=== PATIENT | female | born 1985 ===

== ENCOUNTER → 2018-05-12 | Outpatient (CLI) | payer SELFPAY ==
--- NOTE | 2018-05-12 16:48 | Diagnostic Imaging Report ---
INDICATION: survey. TECHNIQUE: Multiple real-time grayscale images were obtained over the gravid uterus. COMPARISON: None. FINDINGS: There is a single live fetus in a transverse presentation. The placenta is posterior and appears to be marginal in location. heart rate was recorded at 147 beats minute. Amniotic fluid volume appears normal. Cervical length is 5.8 cm. survey demonstrates kidneys, bladder, and stomach to be unremarkable. brain is unremarkable. There is a three-vessel cord with normal insertion. spine is unremarkable. Four-chamber heart view is not well seen on today's study. Biometrical measurements are as follows: Biparietal 6.99 cm, age 28 weeks 1 days. Head circumference 25.90 cm, age 28 weeks 2 days. Abdominal circumference 23.26 cm, age 27 weeks 5 days. Femur length 5.12 cm, age 27 weeks 3 days. Sonographic estimate age: 28 weeks 0 days. Sonographic estimated date of delivery: 08/04/18. Estimated Weight: 1101 gm (+/- 161 gm). LMP percentile: 63%. heart rate: 147 beats per minute. number: 1 of 1. IMPRESSION: Single live IUP at approximately 28 weeks 0 days gestational age with an estimated date of confinement sonographically of 08/04/2018. No gross abnormality is seen, although four-chamber heart view is not well visualized today and followup could be obtained. Dictated by: Dictated on workstation # [id number]
== END ==
LOC: RAD 15:47
PROVIDERS: ATTEND Family Medicine
DX: Z36.89 Encounter for other specified antenatal screening (principal); Z3A.28 28 weeks gestation of pregnancy
CPT/HCPCS: 76805

== ENCOUNTER → 2018-06-10 | Outpatient (CLI) | payer SELFPAY ==
--- NOTE | 2018-06-10 14:17 | Diagnostic Imaging Report ---
INDICATION: Followup marginal placenta. TECHNIQUE: Multiple real-time grayscale images were obtained over the gravid uterus. COMPARISON: 05/12/2018. FINDINGS: There is a single live fetus in a breech presentation. heart rate was recorded at 139 beats per minute. Placenta is posterior. No marginal previa is seen on today's study. Amniotic fluid volume is normal. Four-chamber heart view is visualized today and unremarkable. IMPRESSION: Unremarkable followup obstetrical ultrasound. There is no evidence of marginal placenta previa. Placental tip is now well away from the internal cervical os. Four-chamber heart view is also visualized on today's study. Dictated by: Dictated on workstation # [id number]
== END ==
LOC: RAD 13:21
PROVIDERS: ATTEND Family Medicine
DX: O44.20 Partial placenta previa NOS or without hemorrhage, unspecified trimester (principal); Z3A.31 31 weeks gestation of pregnancy
CPT/HCPCS: 76816

== ENCOUNTER 2018-08-06 08:57 | Inpatient (IN) | payer OTHER ==
[~2018-08-06] VITALS: Ht 156.2 cm; Wt 84.4 kg
[2018-08-06] VITALS (57 sets, daily range): BP systolic 105–173; BP diastolic 50–91
--- OUTSIDE RECORDS SUMMARY | 2018-08-06 09:21 | XMS REPORT ---
Author Author DANIELA COUCH Organization [facility] Address [address] [place] [address] Care Team Providers Care Patient Scheduler Name Role Phone DANIELA COUCH Unavailable PROBLEMS Unknown Problems ALLERGIES No Information ENCOUNTERS Encounter Location Date Diagnosis [facility] [id number] [place] [address] 28150- 6427 Jul, [facility] [id number] [place] [address] 40566- 7912 Jul, 39 weeks gestation of Z3A.39 and Third trimester Z34.93 [facility] [id number] [place] [address] 14272- 0553 Jun, [facility] [id number] [place] [address] 74934- 7329 Jun, [facility] [id number] [place] [address] 06196- 7108 Jun, Third trimester Z34.93 and 38 weeks gestation of Z3A.38 [facility] [id number] [place] [address] 46203- 7785 Jun, 37 weeks gestation of Z3A.37 and Third trimester Z34.93 [facility] [id number] [place] [address] 69608- 8512 Jun, [facility] [id number] [place] [address] 56872- 3629 Jun, [facility] [id number] [address] 6920 Jun, Third trimester Z34.93 and 36 weeks gestation of Z3A.36 [facility] [id number] [address] 0333 May, 33 weeks gestation of Z3A.33 ; Third trimester Z34.93 and Encounter for immunization Z23 [place] [id number] [place] [address] 39869- 0866 May, Marginal placenta previa O44.20 ; Third trimester Z34.93 and 31 weeks gestation of Z3A.31 [place] [id number] [place] [address] 66278- 1963 Apr, [place] [id number] [place] [address] 37926- 3302 Apr, Abnormal glucose tolerance test in O99.810 [place] [id number] [place] [address] 28552- 0356 Apr, [place] [id number] [place] [address] 35472- 6208 Apr, Screening for deficiency anemia Z13.0 [place] [id number] [place] [address] 63920- 3772 18 Apr, 2018 [place] [id number] [place] [address] 40912- 7959 Apr, [place] [id number] [place] [address] 58209- 0203 Apr, Normal in multigravida Z34.80 ; Second trimester Z33.1 ; 26 weeks gestation of Z3A.26 and Previous stillbirth or demise, antepartum O09.299 [place] [id number] [place] [address] 50569- 3377 Apr, [place] [id number] [place] [address] 39836- 7538 Apr, [facility] [address] [address]- 4966 Apr, Encounter for test Z32.00 IMMUNIZATIONS No Known Immunizations SOCIAL HISTORY Never Assessed REASON FOR VISIT OB 4WK [id number]-mpolshakMA PLAN OF CARE Activity Details Follow Up 2 Weeks Reason: VITAL SIGNS Height 5'2" in 2018-06-03 Weight 179 lbs 2018-06-03 Temperature 98.8 degrees Fahrenheit 2018-06-03 Heart Rate 90 bpm 2018-06-03 Respiratory Rate 20 2018-06-03 BMI 32.74 kg/m2 2018-06-03 Blood pressure systolic 115 mmHg 2018-06-03 Blood pressure diastolic 70 mmHg 2018-06-03 MEDICATIONS Medication Instructions Dosage Frequency Start Date End Date Duration Status Active RESULTS Name Result Date Reference Range UA OB DIP (IN HOUSE) 2018-06-03 Glucose neg Protein neg Ultrasound : OB, Follow-up 2018-06-10 PROCEDURES Procedure Date Ordered Result Body Site URINE-NO MICRO June 03, 2018 INSTRUCTIONS MEDICATIONS ADMINISTERED No Known Medications MEDICAL (GENERAL) HISTORY Type Description Date Hospitalization History Childbirth
--- OUTSIDE RECORDS SUMMARY | 2018-08-06 09:21 | XMS REPORT ---
Author Author DANIELA COUCH Organization [facility] Address [address] [place] [address] Care Team Providers Care Pie Filler Name Role Phone DANIELA COUCH Unavailable PROBLEMS Unknown Problems ALLERGIES No Information ENCOUNTERS Encounter Location Date Diagnosis [place] [id number] [place] [address] 88651- 4746 Jul, [place] [address] 68437- 1329 Jun, [place] [address] 69455- 6460 Jun, [place] [address] [place] [address] [id number] [place] [address] 36226- 8978 Jun, Third trimester Z34.93 and 38 weeks gestation of Z3A.38 [place] [id number] [place] [address] 19044- 7357 Jun, 37 weeks gestation of Z3A.37 and Third trimester Z34.93 [place] [id number] [place] [address] 83584- 0163 Jun, [place] [id number] [place] [address] 98279- 6775 Jun, [place] [id number] [place] [address] 26167- 6366 Jun, Third trimester Z34.93 and 36 weeks gestation of Z3A.36 [place] [id number] [place] [address] 43399- 6350 May, 33 weeks gestation of Z3A.33 ; Third trimester Z34.93 and Encounter for immunization Z23 [place] [address] [address] 9928 May, Marginal placenta previa O44.20 ; Third trimester Z34.93 and 31 weeks gestation of Z3A.31 [facility] [address] [address]- 4587 27 Apr, 2018 [place] [id number] [place] [address] 82588- 9324 Apr, Abnormal glucose tolerance test in O99.810 [place] [id number] [place] [address] 74931- 1995 Apr, [place] [id number] [place] [address] 60748- 4078 Apr, Screening for deficiency anemia Z13.0 [place] [id number] [place] [address] 52164- 1103 Apr, [place] [id number] [place] [address] 36909- 5196 Apr, [place] [address] [place] [address] 67056- 1749 Apr, Normal in multigravida Z34.80 ; Second trimester Z33.1 ; 26 weeks gestation of Z3A.26 and Previous stillbirth or demise, antepartum O09.299 [place] [address] [address]- 7390 Apr, [place] [address] [address]- 1856 Apr, [place] [address] [address]- 8489 Apr, Encounter for test Z32.00 IMMUNIZATIONS No Known Immunizations SOCIAL HISTORY Never Assessed REASON FOR VISIT PLAN OF CARE VITAL SIGNS MEDICATIONS Unknown Medications RESULTS No Results PROCEDURES No Known procedures INSTRUCTIONS MEDICATIONS ADMINISTERED No Known Medications MEDICAL (GENERAL) HISTORY Type Description Date Hospitalization History Childbirth
--- OUTSIDE RECORDS SUMMARY | 2018-08-06 09:22 | XMS REPORT ---
Author Author DANIELA COUCH Organization [facility] Address [address] [place] [address] Care Team Providers Care Cage Tender Name Role Phone DANIELA COUCH Unavailable PROBLEMS Unknown Problems ALLERGIES No Information ENCOUNTERS Encounter Location Date Diagnosis [place] [id number] 49679- 5934 Jul, [place] [address] 01791- 1653 Jun, [place] [address] 07075- 9857 Jun, Third trimester Z34.93 and 38 weeks gestation of Z3A.38 [place] [address] [place] [id number] [place] [address] 54331- 3282 Jun, 37 weeks gestation of Z3A.37 and Third trimester Z34.93 [place] [id number] [place] [address] 16797- 3786 Jun, [place] [id number] [place] [address] 43439- 6832 Jun, [place] [address] [address] [id number] [place] [address] 54908- 4028 Jun, Third trimester Z34.93 and 36 weeks gestation of Z3A.36 [place] [address] 02984- 3401 May, 33 weeks gestation of Z3A.33 ; Third trimester Z34.93 and Encounter for immunization Z23 [place] [address] [id number] [place] [address] 84199- 4262 May, Marginal placenta previa O44.20 ; Third trimester Z34.93 and 31 weeks gestation of Z3A.31 [place] [address] [place] [address] 46799- 5103 27 Apr, 2018 [facility] [address] [place] [address] 05003- 4666 Apr, Abnormal glucose tolerance test in O99.810 [place] [address] [id number] [place] [address] 10748- 2394 Apr, [place] [address] [address] [id number] [place] [address] 09760- 5175 19 Apr, 2018 Screening for deficiency anemia Z13.0 [place] [address] [id number] [place] [address] 50230- 0195 18 Apr, 2018 [place] [address] [id number] [place] [address] 60152- 1110 Apr, [place] [address] [id number] [place] [address] 19336- 4569 Apr, Normal in multigravida Z34.80 ; Second trimester Z33.1 ; 26 weeks gestation of Z3A.26 and Previous stillbirth or demise, antepartum O09.299 [place] [address], [place] [address]- 1924 Apr, [place] [address], [place] [address]- 3924 Apr, [place] [address], [place] [address]- 2549 Apr, Encounter for test Z32.00 IMMUNIZATIONS No Known Immunizations SOCIAL HISTORY Never Assessed REASON FOR VISIT Presumptive Eligibility PLAN OF CARE VITAL SIGNS MEDICATIONS Unknown Medications RESULTS No Results PROCEDURES No Known procedures INSTRUCTIONS MEDICATIONS ADMINISTERED No Known Medications MEDICAL (GENERAL) HISTORY Type Description Date Hospitalization History Childbirth
--- OUTSIDE RECORDS SUMMARY | 2018-08-06 09:22 | XMS REPORT ---
Author Author DANIELA COUCH Organization [facility] Address [address] [place] [address] Care Team Providers Care Trash Man Name Role Phone DANIELA COUCH Unavailable PROBLEMS Unknown Problems ALLERGIES No Information ENCOUNTERS Encounter Location Date Diagnosis [place] [address] 61435- 6549 Jul, [place] [address] 27016- 7355 Jun, [place] [address] 94496- 9656 Jun, 37 weeks gestation of Z3A.37 and Third trimester Z34.93 [place] [address] [place] [id number] [place] [address] 57307- 6199 Jun, [place] [address] 55903- 3718 Jun, [place] [address] 12710- 6495 Jun, Third trimester Z34.93 and 36 weeks gestation of Z3A.36 [place] [id number] [place] [address] 17512- 7339 May, 33 weeks gestation of Z3A.33 ; Third trimester Z34.93 and Encounter for immunization Z23 [place] [address] 28657- 8383 May, Marginal placenta previa O44.20 ; Third trimester Z34.93 and 31 weeks gestation of Z3A.31 [place] [address] 58481- 1544 Apr, [facility] [address], [place] [address]- 9303 Apr, Abnormal glucose tolerance test in O99.810 [facility] [address], [place] [address]- 4955 Apr, [facility] [id number] [place] [address] 40410- 9625 Apr, Screening for deficiency anemia Z13.0 [facility] [id number] [place] [address] 74167- 8943 18 Apr, 2018 [place] [address] [id number] [place] [address] 24397- 0966 Apr, [facility] [address] [place] [address] 50146- 9533 Apr, Normal in multigravida Z34.80 ; Second trimester Z33.1 ; 26 weeks gestation of Z3A.26 and Previous stillbirth or demise, antepartum O09.299 [facility] [address], [place] [address]- 9303 Apr, [place] [address], [place] [address]- 3370 Apr, [facility] [address], [place] [address]- 4228 Apr, Encounter for test Z32.00 IMMUNIZATIONS No Known Immunizations SOCIAL HISTORY Never Assessed REASON FOR VISIT Ob intake PLAN OF CARE VITAL SIGNS MEDICATIONS Unknown Medications RESULTS No Results PROCEDURES No Known procedures INSTRUCTIONS MEDICATIONS ADMINISTERED No Known Medications MEDICAL (GENERAL) HISTORY Type Description Date Hospitalization History Childbirth
--- OUTSIDE RECORDS SUMMARY | 2018-08-06 09:22 | XMS REPORT ---
Author Author DANIELA COUCH Organization [facility] Address [address] [place] [address] Care Team Providers Care Rapid Transit Operator Name Role Phone DANIELA COUCH Unavailable PROBLEMS Unknown Problems ALLERGIES No Information ENCOUNTERS Encounter Location Date Diagnosis [place] [address] [id number] [place] [address] 37656- 1350 Jul, [place] [address] 02620- 4561 Jun, [place] [address] 98470- 0340 Jun, [place] [address] [place] [address] [id number] [place] [address] 34427- 3427 Jun, Third trimester Z34.93 and 38 weeks gestation of Z3A.38 [place] [id number] [place] [address] 67295- 8930 Jun, 37 weeks gestation of Z3A.37 and Third trimester Z34.93 [place] [address] [id number] [place] [address] 68970- 4658 Jun, [place] [address] [id number] [place] [address] 03841- 0684 Jun, [place] [address] [id number] [place] [address] 84686- 1296 Jun, Third trimester Z34.93 and 36 weeks gestation of Z3A.36 [place] [address] [id number] [place] [address] 93500- 8033 May, 33 weeks gestation of Z3A.33 ; Third trimester Z34.93 and Encounter for immunization Z23 [place] [address], [place] [address]- 8735 May, Marginal placenta previa O44.20 ; Third trimester Z34.93 and 31 weeks gestation of Z3A.31 [facility] [address], [place] [address]- 6734 27 Apr, 2018 [place] [address] [place] [address] 91231- 3280 Apr, Abnormal glucose tolerance test in O99.810 [place] [id number] [place] [address] 37945- 9271 Apr, [place] [address] [id number] [place] [address] 16736- 2084 Apr, Screening for deficiency anemia Z13.0 [place] [address] [id number] [place] [address] 69825- 7637 Apr, [place] [address] [id number] [place] [address] 18735- 6608 Apr, [place] [address] [place] [address] 16851- 1524 Apr, Normal in multigravida Z34.80 ; Second trimester Z33.1 ; 26 weeks gestation of Z3A.26 and Previous stillbirth or demise, antepartum O09.299 [place] [address], [place] [address]- 1509 Apr, [place] [address], [place] [address]- 8533 Apr, [place] [address], [place] [address]- 3306 Apr, Encounter for test Z32.00 IMMUNIZATIONS No Known Immunizations SOCIAL HISTORY Never Assessed REASON FOR VISIT [facility] Intake PLAN OF CARE VITAL SIGNS MEDICATIONS Unknown Medications RESULTS No Results PROCEDURES No Known procedures INSTRUCTIONS MEDICATIONS ADMINISTERED No Known Medications MEDICAL (GENERAL) HISTORY Type Description Date Hospitalization History Childbirth
--- OUTSIDE RECORDS SUMMARY | 2018-08-06 09:22 | XMS REPORT ---
Author Author DANIELA COUCH Organization [facility] Address [address] [place] [address] Care Team Providers Care Grain Combine Driver Name Role Phone DANIELA COUCH Unavailable PROBLEMS Unknown Problems ALLERGIES No Information ENCOUNTERS Encounter Location Date Diagnosis [place] [address] [place] [address] [id number] [place] [address] 32312- 4300 Jul, [place] [id number] [place] [address] 18396- 4447 Jun, Third trimester Z34.93 and 38 weeks gestation of Z3A.38 [place] [address] [id number] [place] [address] 16394- 5257 Jun, 37 weeks gestation of Z3A.37 and Third trimester Z34.93 [place] [address] [id number] [place] [address] 97867- 2113 Jun, [place] [address] [id number] [place] [address] 02086- 3343 Jun, [place] [address] [id number] [place] [address] 58997- 1740 Jun, Third trimester Z34.93 and 36 weeks gestation of Z3A.36 [place] [address] [id number] [place] [address] 85066- 5976 May, 33 weeks gestation of Z3A.33 ; Third trimester Z34.93 and Encounter for immunization Z23 [place] [address] [address] [id number] [place] [address] 29944- 4847 May, Marginal placenta previa O44.20 ; Third trimester Z34.93 and 31 weeks gestation of Z3A.31 [place] [address] [place] [address] [address]- 7555 Apr, [facility] [address], [place] [address]- 6849 Apr, Abnormal glucose tolerance test in O99.810 [facility] [address], [place] [address]- 6039 Apr, [facility] [address] [id number] [place] [address] 66579- 2973 Apr, Screening for deficiency anemia Z13.0 [facility] [address] [address] [id number] [place] [address] 48118- 8346 18 Apr, 2018 [place] [address] [place] [address] 21689- 3606 Apr, [facility] [address], [place] [address]- 5961 Apr, Normal in multigravida Z34.80 ; Second trimester Z33.1 ; 26 weeks gestation of Z3A.26 and Previous stillbirth or demise, antepartum O09.299 [facility] [address], [place] [address]- 5398 Apr, [facility] [address], [place] [address]- 2112 Apr, [facility] [address], [place] [address]- 0499 Apr, Encounter for test Z32.00 IMMUNIZATIONS No Known Immunizations SOCIAL HISTORY Never Assessed REASON FOR VISIT Returned call PLAN OF CARE VITAL SIGNS MEDICATIONS Unknown Medications RESULTS No Results PROCEDURES No Known procedures INSTRUCTIONS MEDICATIONS ADMINISTERED No Known Medications MEDICAL (GENERAL) HISTORY Type Description Date Hospitalization History Childbirth
--- OUTSIDE RECORDS SUMMARY | 2018-08-06 09:22 | XMS REPORT ---
Author Author DANIELA COUCH Organization [facility] Address [address] [place] [address] Care Team Providers Care Community Service Officer Name Role Phone DANIELA COUCH Unavailable PROBLEMS Unknown Problems ALLERGIES No Known Allergies ENCOUNTERS Encounter Location Date Diagnosis [place] [address] [address] Jul, [place] [address] [address] Jun, [place] [address] [address] Jun, 37 weeks gestation of Z3A.37 and Third trimester Z34.93 [place] [address] [place] [id number] [place] [address]- [address] Jun, [place] [address] [address] Jun, [place] [address] [address]- [address] Jun, Third trimester Z34.93 and 36 weeks gestation of Z3A.36 [place] [address] [id number] [place] [address]83- 5367 May, 33 weeks gestation of Z3A.33 ; Third trimester Z34.93 and Encounter for immunization Z23 [place] [address] [address] May, Marginal placenta previa O44.20 ; Third trimester Z34.93 and 31 weeks gestation of Z3A.31 [place] [address] [address] Apr, [facility] [address], [place] [address] Apr, Abnormal glucose tolerance test in O99.810 [facility] [address], [place] [address] Apr, [facility] [address] [place] [id number] [place] [address]686- 0997 Apr, Screening for deficiency anemia Z13.0 [facility] [address] [id number] [place] [address] 16[address]- 8169 18 Apr, 2018 [place] [address] [id number] [place] [address]33- 7511 Apr, [facility] [address] [address] [id number] [place] [address] 73654- 5660 Apr, Normal in multigravida Z34.80 ; Second trimester Z33.1 ; 26 weeks gestation of Z3A.26 and Previous stillbirth or demise, antepartum O09.299 [facility] [address] [place] [address] 35043- 8994 Apr, [place] [address] [id number] [place] [address] 63[address]- 133[address] Apr, [facility] [address], [place] [address] Apr, Encounter for test Z32.00 IMMUNIZATIONS No Known Immunizations SOCIAL HISTORY Never Assessed REASON FOR VISIT [id number], MA PLAN OF CARE Activity Details Follow Up 4 Weeks Reason: Pending Test URINE DRUG SCREEN (IN HOUSE) VITAL SIGNS Height 5'2" in 2018-05-06 Weight 175 lbs 2018-05-06 Temperature 98.2 degrees Fahrenheit 2018-05-06 Heart Rate 92 bpm 2018-05-06 Respiratory Rate 20 2018-05-06 BMI 32.00 kg/m2 2018-05-06 Blood pressure systolic 120 mmHg 2018-05-06 Blood pressure diastolic 68 mmHg 2018-05-06 MEDICATIONS Medication Instructions Dosage Frequency Start Date End Date Duration Status Active RESULTS No Results PROCEDURES Procedure Date Ordered Result Body Site COMPLETE CBC W/AUTO DIFF WBC May 06, 2018 BLOOD TYPING, ABO May 06, 2018 CULTURE, BACTERIA, OTHER May 06, 2018 TRICHOMONAS ASSAY W/OPTIC May 06, 2018 No Charge May 06, 2018 BLOOD TYPING, RH (D) May 06, 2018 RBC ANTIBODY SCREEN May 06, 2018 ASSAY THYROID STIM HORMONE May 06, 2018 RUBELLA ANTIBODY May 06, 2018 URINALYSIS, AUTO, W/O SCOPE May 06, 2018 SPECIMEN HANDLING May 06, 2018 GLUCOSE TEST May 06, 2018 URINE CULTURE/COLONY COUNT May 06, 2018 VENIPUNCT, ROUTINE* May 06, 2018 INSTRUCTIONS MEDICATIONS ADMINISTERED No Known Medications MEDICAL (GENERAL) HISTORY Type Description Date Hospitalization History Childbirth
--- OUTSIDE RECORDS SUMMARY | 2018-08-06 09:22 | XMS REPORT ---
Author Author ADAM NAVARRO [facility] Address [address] [place] [address] Care Team Providers Care Cable Splicer Helper Name Role Phone MELANIEADAM Unavailable PROBLEMS Unknown Problems ALLERGIES No Information ENCOUNTERS Encounter Location Date Diagnosis [place] [address] [place] [id number] [place] [address]- [address] Jul, [place] [address] [address]- [address] Jun, [place] [address] [address]- 7170 Jun, 37 weeks gestation of Z3A.37 and Third trimester Z34.93 [place] [address] [place] [id number] [place] [address] 38271- 5736 Jun, [place] [address] [address]- [address] Jun, [place] [address] [place] [id number] [place] [address] 39199- 4002 Jun, Third trimester Z34.93 and 36 weeks gestation of Z3A.36 [place] [address] [place] [address] [id number] [place] [address] 64842- 4183 May, 33 weeks gestation of Z3A.33 ; Third trimester Z34.93 and Encounter for immunization Z23 [place] [address] [address]- 89[address] May, Marginal placenta previa O44.20 ; Third trimester Z34.93 and 31 weeks gestation of Z3A.31 [place] [address] 7[address]- [address] Apr, [facility] [address], [place] [address] Apr, Abnormal glucose tolerance test in O99.810 [place] [address], [place] [address] Apr, [place] [address] [place] [id number] [place] [address]55- 1402 Apr, Screening for deficiency anemia Z13.0 [place] [address] [place] [id number] [place] [address] 81424- 2383 18 Apr, 2018 [place] [address] [place] [id number] [place] [address] 23429- 1006 Apr, [place] [address] [place] [address] 76460- 0591 Apr, Normal in multigravida Z34.80 ; Second trimester Z33.1 ; 26 weeks gestation of Z3A.26 and Previous stillbirth or demise, antepartum O09.299 [place] [address], [place] [address] Apr, [place] [address] [place] [id number] [place] [address]12- 270[address] Apr, [place] [address], [place] [address] Apr, Encounter for test Z32.00 IMMUNIZATIONS No Known Immunizations SOCIAL HISTORY Never Assessed REASON FOR VISIT test (walk-in)--[facility] PLAN OF CARE VITAL SIGNS MEDICATIONS Unknown Medications RESULTS Name Result Date Reference Range TEST, URINE (IN HOUSE) 2018-05-04 RESULTS POSITIVE Lot # [id number] Control + Exp date 12/2018 PROCEDURES Procedure Date Ordered Result Body Site URINE TEST May 04, 2018 INSTRUCTIONS MEDICATIONS ADMINISTERED No Known Medications MEDICAL (GENERAL) HISTORY Type Description Date Hospitalization History Childbirth
--- OUTSIDE RECORDS SUMMARY | 2018-08-06 09:22 | XMS REPORT ---
Author Author ADAM NAVARRO [facility] Address [address] [place] [address] Care Team Providers Care Berry Grower Name Role Phone MELANIEADAM Unavailable PROBLEMS Unknown Problems ALLERGIES No Information ENCOUNTERS Encounter Location Date Diagnosis [place] [address] [place] [id number] [place] [address] 26070- 8227 Jul, [place] [address] [address]- [address] Jun, [place] [address] [address]- [address] Jun, 37 weeks gestation of Z3A.37 and Third trimester Z34.93 [place] [address] [place] [id number] [place] [address] 94675- 1620 Jun, [place] [address] [address]- 4641 Jun, [place] [address] [place] [id number] [place] [address] 11677- 9714 Jun, Third trimester Z34.93 and 36 weeks gestation of Z3A.36 [place] [address] [place] [id number] [place] [address] 68072- 4666 May, 33 weeks gestation of Z3A.33 ; Third trimester Z34.93 and Encounter for immunization Z23 [place] [address] [address]- 0665 May, Marginal placenta previa O44.20 ; Third trimester Z34.93 and 31 weeks gestation of Z3A.31 [place] [address] 10[address]- 1069 Apr, [facility] [address], [place] [address] Apr, Abnormal glucose tolerance test in O99.810 [place] [address] [place] [address] 95309- 5270 Apr, [place] [address] [place] [id number] [place] [address] 42511- 7279 Apr, Screening for deficiency anemia Z13.0 [place] [address] [place] [id number] [place] [address] 23204- 9277 18 Apr, 2018 [place] [address] [place] [id number] [place] [address] 30879- 5806 Apr, [place] [address] [place] [id number] [place] [address] 99604- 5315 Apr, Normal in multigravida Z34.80 ; Second trimester Z33.1 ; 26 weeks gestation of Z3A.26 and Previous stillbirth or demise, antepartum O09.299 [place] [address], [place] [address]- [address] Apr, [place] [address] [place] [id number] [place] [address] 46296- 5449 Apr, [place] [address], [place] [address]- [address] Apr, Encounter for test Z32.00 IMMUNIZATIONS No Known Immunizations SOCIAL HISTORY Never Assessed REASON FOR VISIT [facility] Hemoglobin PLAN OF CARE VITAL SIGNS MEDICATIONS Unknown Medications RESULTS Name Result Date Reference Range HEMOGLOBIN (IN HOUSE) 2018-05-12 HEMOGLOBIN 13.4 11.5 - 16 gm/dL Lot # [id number] Exp date 09/01/19 PROCEDURES Procedure Date Ordered Result Body Site HEMOGLOBIN May 12, 2018 INSTRUCTIONS MEDICATIONS ADMINISTERED No Known Medications MEDICAL (GENERAL) HISTORY Type Description Date Hospitalization History Childbirth
--- OUTSIDE RECORDS SUMMARY | 2018-08-06 09:22 | XMS REPORT ---
Author Author DANIELA COUCH Organization [facility] Address [address] [place] [address] Care Team Providers Care Applications Systems Analyst Name Role Phone DANIELA COUCH Unavailable PROBLEMS Unknown Problems ALLERGIES No Information ENCOUNTERS Encounter Location Date Diagnosis [place] [address] [place] [id number] [place] [address] 15781- 9663 Jul, [place] [address] [place] [address] [id number] [place] [address] 58814- 6072 Jun, Third trimester Z34.93 and 38 weeks gestation of Z3A.38 [place] [address] [place] [id number] [place] [address] 05934- 7574 Jun, 37 weeks gestation of Z3A.37 and Third trimester Z34.93 [place] [address] [place] [id number] [place] [address] 59471- 3212 Jun, [place] [address] [place] [id number] [place] [address] 54187- 1752 Jun, [place] [address] [place] [id number] [place] [address] 27200- 3196 Jun, Third trimester Z34.93 and 36 weeks gestation of Z3A.36 [place] [address] [place] [id number] [place] [address] 97415- 9145 May, 33 weeks gestation of Z3A.33 ; Third trimester Z34.93 and Encounter for immunization Z23 [place] [address] [place] [id number] [place] [address] 67189- 1165 May, Marginal placenta previa O44.20 ; Third trimester Z34.93 and 31 weeks gestation of Z3A.31 [place] [address] [place] [address] Apr, [facility] [address], [place] [address]- 93[address] Apr, Abnormal glucose tolerance test in O99.810 [facility] [address], [place] [address]- 6[address] Apr, [facility] [address] [place] [id number] [place] [address] 25087- 4787 Apr, Screening for deficiency anemia Z13.0 [facility] [address] [place] [id number] [place] [address] 85482- 6560 18 Apr, 2018 [place] [address] [place] [address] 90671- 3750 Apr, [facility] [address] [place] [address] 82868- 8826 Apr, Normal in multigravida Z34.80 ; Second trimester Z33.1 ; 26 weeks gestation of Z3A.26 and Previous stillbirth or demise, antepartum O09.299 [facility] [address], [place] [address]- 29[address] Apr, [facility] [address] [address]- 46[address] Apr, [facility] [address], [place] [address]- 2266 Apr, Encounter for test Z32.00 IMMUNIZATIONS No Known Immunizations SOCIAL HISTORY Never Assessed REASON FOR VISIT Lab results PLAN OF CARE VITAL SIGNS MEDICATIONS Unknown Medications RESULTS No Results PROCEDURES No Known procedures INSTRUCTIONS MEDICATIONS ADMINISTERED No Known Medications MEDICAL (GENERAL) HISTORY Type Description Date Hospitalization History Childbirth
[2018-08-06] MEDS ORDERED: OXYTOCIN/NORMAL SALINE 500 ML IV SCH ×2 (09:34→23:39)
[2018-08-06 09:42] LABS: BASOPHILS % (AUTO) 0 % (0-10); EOSINOPHILS # (AUTO) 0.1 10^3/uL (0.0-0.3); EOSINOPHILS % (AUTO) 1 % (0-10); HEMATOCRIT 40 % (35-52); HEMOGLOBIN 13.6 G/DL (11.5-16.0); LYMPHOCYTES # (AUTO) 2.4 X 10^3 (1.0-4.0); LYMPHOCYTES % (AUTO) 27 % (12-44); MEAN CORPUSCULAR HEMOGLOBIN 28 PG (25-34); MEAN CORPUSCULAR HGB CONC 34 G/DL (32-36); MEAN CORPUSCULAR VOLUME 83 FL (80-99); MEAN PLATELET VOLUME 10.2 FL (7.4-10.4); MONOCYTES # (AUTO) 0.6 X 10^3 (0.0-1.0); MONOCYTES % (AUTO) 6 % (0-12); NEUTROPHILS # (AUTO) 5.7 X 10^3 (1.8-7.8); NEUTROPHILS % (AUTO) 65 % (42-75); PLATELET COUNT 300 10^3/uL (130-400); RED BLOOD COUNT 4.83 10^6/uL (4.35-5.85); WHITE BLOOD COUNT 8.7 10^3/uL (4.3-11.0)
[2018-08-06] MEDS ORDERED: LIDOCAINE/EPI 2% 1:200,00 (XYLOCAINE) 10 ML VIAL INJ ONE (09:45)
[2018-08-06] MEDS ORDERED: MINERAL OIL CONCENTRATE 99.9% 15 ML UDC TOP PRN (09:45)
[2018-08-06] MEDS: D5 LR IV SOLUTION 1,000 ML IV SCH ×2 (10:02→17:42)
[2018-08-06] MEDS ORDERED: BUTORPHANOL INJ 2 MG/ML (STADOL) VIAL IV PRN (11:28)
[2018-08-06] MEDS ORDERED: CATHETER FLUSH 10 ML SYR IV SCH (14:00)
--- NOTE | 2018-08-06 16:02 | History & Physical-OB ---
OB - Chief Complaint & HPI Date/Time Date of Admission: Date of Admission: Aug 06, 2018 at 8:57 am Time Seen by Provider: 15:00 Chief Complaint/History OB-Reason for Admission/Chief: Obstetrical Complication (Abnormal BPP 05/01) Hx : 4 Hx Para: 2 Expected Date of Delivery: Aug 04, 2018 Gestational Age in Weeks: 40 Gestational Age in Days: 2 Indication for induction: other (Post dates with abnormal BPP) Other reason for admission: Abnormal BPP History of Labs B+, Ab neg Rub Imm HIV/RPR/HepB NR GC/chyl neg GBS neg Allergies and Home Medications Allergies Coded Allergies: No Known Drug Allergies (Unverified , 08/06/18) Home Medications No Active Prescriptions or Reported Meds Patient Home Medication List Home Medication List Reviewed: Yes OB - History Hx of Present Care: Yes Ultrasounds: Normal mid trimester US Obstetrical Complications: None Medical Complications: None Information Induced Hypertension: No Maternal Gestational Diabetes: No Hemorrhage: No Obstetrical History Hx : 4 Hx Para: 2 Hx # Term Pregnancies: 3 Number of Living Children: 2 Patient Past Medical History H/o term Demise Social History/Family History HIV/AIDS: No Recent Infectious Disease Expo: No Sexually Transmitted Disease: Yes (HPB ) Alcohol Use: Denies Use Recreational Drug Use: No Immunizations Hepatitis A: Yes Hepatitis B: Yes Tetanus Booster (TDap): Less than 5yrs (05/19/2018) Rubella: immune RPR/VDRL: Negative GBS Status: Negative HBsAG: Negative OB - Admission Exam Physical Exam Vitals: Vital Signs 08/06/18 08/06/18 09:12 13:50 Temp 98.4 Pulse 77 Resp 18 B/P (MAP) 117/65 (82) O2 Delivery Room Air Cervical Dilatation: 3cm Effacement: 50% Station: -2 Membranes: Ruptured Amniotic Fluid: Clear Heart Rate: 150's Accelerations: Accelerations Present Decelerations: No Decelerations Contractions on Admission: 6-10 Minutes Apart Intensity: Moderate Labs Laboratory Tests Test 08/06/18 09:20 Range/Units White Blood Count 8.7 4.3-11.0 10^3/uL Red Blood Count 4.83 4.35-5.85 10^6/uL Hemoglobin 13.6 11.5-16.0 G/DL Hematocrit 40 35-52 % Mean Corpuscular Volume 83 80-99 FL Mean Corpuscular Hemoglobin 28 25-34 PG Mean Corpuscular Hemoglobin Concent 34 32-36 G/DL Red Cell Distribution Width 15.0 H 10.0-14.5 % Platelet Count 300 130-400 10^3/uL Mean Platelet Volume 10.2 7.4-10.4 FL Neutrophils (%) (Auto) 65 42-75 % Lymphocytes (%) (Auto) 27 12-44 % Monocytes (%) (Auto) 6 0-12 % Eosinophils (%) (Auto) 1 0-10 % Basophils (%) (Auto) 0 0-10 % Neutrophils # (Auto) 5.7 1.8-7.8 X 10^3 Lymphocytes # (Auto) 2.4 1.0-4.0 X 10^3 Monocytes # (Auto) 0.6 0.0-1.0 X 10^3 Eosinophils # (Auto) 0.1 0.0-0.3 10^3/uL Basophils # (Auto) 0.0 0.0-0.1 10^3/uL OB - Assessment/Plan/Diagnosis Assessment Assessment: active labor, induction of labor, rupture of membranes Admission Dx Active Labor Admission Status: Inpatient Order (span 2 midnights) Reason for Inpatient Admission: Labor Plan Plan: Induction Induction Method: per Pitocin Protocol Other Plan 33 yo @ 40.2 wga here for IOL for post dates and abnormal BPP - AROM 1535, clear - Continue Pitocin - Ok for epidural at patient's request - Expectant management Copy Copies To 1: DANIELA COUCH MD, HOLLY R MD Aug 06, 2018 4:02 pm
[2018-08-06] MEDS ORDERED: SUFENTA 0.6MCG/ML BUPIVA 0.125 100 ML ONE (16:54)
[2018-08-06] MEDS ORDERED: BUPIVACAINE 0.25% 30 ML (SENSORCAINE) VIAL ONE (17:21)
[2018-08-06] MEDS ORDERED: fentaNYL INJECTION 100 MCG/2 ML AMP ONE (17:22)
[2018-08-06] MEDS ORDERED: LACTATED RINGERS 1,000 ML IV ONE (18:12)
[2018-08-06] MEDS ORDERED: EPIDURAL (SUFENTA 0.6MCG/ML BUPIVA 0.125%) 100 ML BAG EPI SCH (18:15)
[2018-08-06] MEDS ORDERED: diphenhydrAMINE 50 MG/ML INJ (BENADRYL) IV PRN (18:15)
[2018-08-06] MEDS ORDERED: CATHETER FLUSH 10 ML SYR IV PRN (18:15)
[2018-08-06] MEDS ORDERED: NALOXONE 0.4 MG/ML 1 ML (NARCAN) VIAL IV PRN (18:15)
[2018-08-06] MEDS ORDERED: ONDANSETRON 4 MG/2 ML (SDV) Z0FRAN IV PRN (18:15)
[2018-08-06] MEDS ORDERED: LIDOCAINE/EPI 2% 1:200,00 (XYLOCAINE) 10 ML VIAL ONE (19:35)
--- NOTE | 2018-08-06 23:38 | OB Labor & Delivery Record ---
Vag Delivery Note Vag Delivery Note Date of Delivery: 08/06/18 Preoperative Diagnosis: Melissa Lepe is a (33 /Para 4 / 2, Gestational Age (wks)40.2 wga here for IOL after abnormal BPP Postoperative Diagnosis: Same Surgeon: DANIELA COUCH Wood Cutter: Lizzeth Christie MS4 Anesthesia: Epidural Delivery Type: @ 2315 Findings: LGA Term male infant, normal Viable Male , apgars 8/9, weight 9#6, 4265 grams Lacerations: vaginal abrasion no requiring repair Intact placenta with 3 vessel cord. One body cord No Nuchal cord or shoulder dystocia Estimated Blood Loss: 200 ml Complications: None Condition: Stable Description of Procedure: The patient is a 33 yo G4 now P4 who presented for IOL @ 40.2 after abnormal BPP. She was admitted and informed consent was obtained. Her labor course was unremarkable. She progressed to complete dilatation and began to push. She was then set up for delivery. The infant's head was delivered atraumatically in the DAWN position. The shoulders and remainder of the 's body were then delivered without difficulty thru 1 body cord. Upon delivery, the head was held below the level of the perineum and the mouth and nares were bulb suctioned. The cord was doubly clamped and cut by patient's sister and the infant placed on maternal abdomen and attended to be pediatric staff. An intact placenta with 3-vessel cord delivered via Andrea and there was found to be minimal bleeding.~ Vigorous fundal massage was performed and the fundus was found to be firm. IV oxytocin was given. Examination of the vagina and perineum revealed a vaginal laceration that did not require repair. Sponge, instrument and needle counts were correct. Mom and baby were both in stable condition in the labor suite. Vitals - Labs Vital Signs - I&O Vital Signs Date Time Temp Pulse Resp B/P (MAP) Pulse Ox O2 Delivery O2 Flow Rate FiO2 08/06/18 22:15 117 18 132/76 (94) 98 Room Air 08/06/18 22:00 103 18 144/84 (104) 98 Room Air 08/06/18 21:45 106 18 137/74 (95) 99 Room Air 08/06/18 21:30 98 18 131/73 (92) 98 Room Air 08/06/18 21:15 97 18 121/70 (87) 98 Room Air 08/06/18 21:00 97.8 102 18 111/65 (80) 97 Room Air 08/06/18 20:45 101 18 123/68 (86) 98 Room Air 08/06/18 20:30 100.2 102 18 117/70 (86) 96 Room Air 08/06/18 20:15 102 18 131/73 (92) 95 Room Air 08/06/18 20:00 93 18 139/87 (104) 97 Room Air 08/06/18 19:45 88 18 120/68 (85) 98 Room Air 08/06/18 19:30 98.9 100 18 133/71 (91) 97 Room Air 08/06/18 19:15 92 18 118/65 (82) 97 Room Air 08/06/18 19:00 104 18 107/50 (69) 97 Room Air 08/06/18 18:50 103 18 105/55 (72) 100 Non Rebreather 10.00 08/06/18 18:33 101 18 110/56 (74) 100 Non Rebreather 10.00 08/06/18 18:20 97 18 108/56 (73) 99 Room Air 08/06/18 18:00 98.5 96 18 127/68 (87) 96 Non Rebreather 10.00 08/06/18 17:55 98 18 127/68 (87) 96 Room Air 08/06/18 17:50 105 18 139/72 (94) 97 Room Air 08/06/18 17:45 106 18 129/69 (89) 97 Room Air 08/06/18 17:38 102 18 147/71 (96) 97 Room Air 08/06/18 17:35 110 18 145/73 (97) Room Air 08/06/18 17:20 99 18 131/66 (87) Room Air 08/06/18 17:05 98 18 122/63 (82) Room Air 08/06/18 16:50 84 18 130/65 (86) Room Air 08/06/18 16:35 96 18 121/60 (80) Room Air 08/06/18 16:05 93 18 117/59 (78) Room Air 08/06/18 15:50 97 18 121/74 (90) Room Air 08/06/18 15:35 98.9 88 18 110/64 (79) Room Air 08/06/18 15:20 86 18 121/73 (89) Room Air 08/06/18 15:05 87 18 124/73 (90) Room Air 08/06/18 14:50 85 18 156/63 (94) Room Air 08/06/18 14:35 98.7 87 18 117/68 (84) Room Air 08/06/18 14:05 95 18 118/77 (91) Room Air 08/06/18 13:50 77 18 117/65 (82) Room Air 08/06/18 13:35 79 18 130/63 (85) Room Air 08/06/18 13:20 105 18 125/71 (89) Room Air 08/06/18 13:05 81 18 126/74 (91) Room Air 08/06/18 12:50 88 18 126/74 (91) Room Air 08/06/18 12:35 81 18 135/67 (89) Room Air 08/06/18 12:20 90 18 123/81 (95) Room Air 08/06/18 12:05 96 18 125/81 (96) Room Air 08/06/18 11:50 98 18 112/64 (80) Room Air 08/06/18 11:35 90 18 118/70 (86) Room Air 08/06/18 11:20 88 18 118/73 (88) Room Air 08/06/18 11:05 103 18 120/73 (89) Room Air 08/06/18 10:50 96 18 130/77 (94) Room Air 08/06/18 10:35 112 18 130/75 (93) Room Air 08/06/18 10:20 94 18 129/82 (98) Room Air 08/06/18 10:05 100 18 136/81 (99) Room Air 08/06/18 09:43 95 18 132/78 (96) Room Air 08/06/18 09:12 98.4 102 18 131/83 (99) Room Air Labs Laboratory Tests 08/06/18 09:20: White Blood Count 8.7, Red Blood Count 4.83, Hemoglobin 13.6, Hematocrit 40, Mean Corpuscular Volume 83, Mean Corpuscular Hemoglobin 28, Mean Corpuscular Hemoglobin Concent 34, Red Cell Distribution Width 15.0H, Platelet Count 300, Mean Platelet Volume 10.2, Neutrophils (%) (Auto) 65, Lymphocytes (%) (Auto) 27 , Monocytes (%) (Auto) 6, Eosinophils (%) (Auto) 1, Basophils (%) (Auto) 0, Neutrophils # (Auto) 5.7, Lymphocytes # (Auto) 2.4, Monocytes # (Auto) 0.6, Eosinophils # (Auto) 0.1, Basophils # (Auto) 0.0 DANIELA COUCH MD Aug 06, 2018 11:38 pm
[2018-08-06] MEDS ORDERED: TETANUS,DIPTH,PERTUSS P/F (BOOSTRIX) 0.5 ML VIAL IM ONE (23:45)
[2018-08-06] MEDS ORDERED: WITCH HAZEL(TUCKS) 40 EA JAR TOP PRN (23:45)
[2018-08-06] MEDS ORDERED: BENZOCAINE/MENTHOL (DERMOPLAST) 56 ML CAN TP PRN (23:45)
[2018-08-07] VITALS (11 sets, daily range): BP systolic 103–143; BP diastolic 57–85
[2018-08-07] MEDS ORDERED: IBUPROFEN 600 MG (MOTRIN) TAB PO ONE (01:04)
[2018-08-07] MEDS: IBUPROFEN 600 MG (MOTRIN) TAB PO SCH ×3 (01:30→18:44)
[2018-08-07 05:58] LABS: BASOPHILS % (AUTO) 0 % (0-10); EOSINOPHILS % (AUTO) 0 % (0-10); HEMATOCRIT 35 % (35-52); HEMOGLOBIN 12.1 G/DL (11.5-16.0); LYMPHOCYTES # (AUTO) 3.1 X 10^3 (1.0-4.0); LYMPHOCYTES % (AUTO) 14 % (12-44); MEAN CORPUSCULAR HEMOGLOBIN 29 PG (25-34); MEAN CORPUSCULAR HGB CONC 35 G/DL (32-36); MEAN CORPUSCULAR VOLUME 84 FL (80-99); MEAN PLATELET VOLUME 10.3 FL (7.4-10.4); MONOCYTES # (AUTO) 1.5 X 10^3 (0.0-1.0); MONOCYTES % (AUTO) 7 % (0-12); NEUTROPHILS # (AUTO) 16.9 X 10^3 (1.8-7.8); NEUTROPHILS % (AUTO) 79 % (42-75); PLATELET COUNT 265 10^3/uL (130-400); RED BLOOD COUNT 4.16 10^6/uL (4.35-5.85); RED CELL DISTRIBUTION WIDTH 14.5 % (10.0-14.5); WHITE BLOOD COUNT 21.5 10^3/uL (4.3-11.0)
--- NOTE | 2018-08-07 07:01 | Anesthesia-Regional Post-Op ---
Regional Patient Condition Mental Status: Alert, Oriented x3 Circulation: Same as Pre-Op Headache: Absent Sensation: Full Recovery Motor Block: Absent Post Op Complications Complications None Follow Up Care/Instructions Patient Instructions None needed. Anesthesia/Patient Condition Patient is doing well, no complaints, stable vital signs, no apparent adverse anesthesia problems. No complications reported per nursing. DIAMOND HARRIS CRNA Aug 07, 2018 07:01
--- NOTE | 2018-08-07 11:04 | Progress Note (SOAP) ---
Subjective Subjective/Events-last exam Pain well controlled this AM. Sitting up in bed. Lochia same as period. Tolerated PO diet Review of Systems Date Seen by Provider: Aug 07, 2018 Time Seen by Provider: 10:55 Cardiovascular: No: Chest Pain, Edema Gastrointestinal: No: Nausea, Vomiting, Abdominal Pain Genitourinary: No Dysuria Objective Exam Last Set of Vital Signs Vital Signs Date Time Temp Pulse Resp B/P (MAP) Pulse Ox O2 Delivery O2 Flow Rate FiO2 08/07/18 08:45 97.0 96 14 106/66 (79) 96 Room Air 08/06/18 18:50 10.00 Capillary Refill : I&O Intake and Output 08/07/18 00:00 Intake Total 2500 ml Output Total 500 ml Balance 2000 ml IV Total 2500 ml Post Void Residual 500 ml Daily Weight Change No General: Alert, Oriented X3, Cooperative, No Acute Distress HEENT: Mucous Memb Moist/Mckenna Lungs: Clear to Auscultation Heart: Regular Rate, No Murmurs Abdomen: Normal Bowel Sounds, Soft, No Tenderness, No Masses, Other (fundus firm and below umbilicus) Extremities: No Edema, No Tenderness/Swelling Results/Procedures Lab Laboratory Tests 08/07/18 05:30: White Blood Count 21.5H, Red Blood Count 4.16L, Hemoglobin 12.1, Hematocrit 35, Mean Corpuscular Volume 84, Mean Corpuscular Hemoglobin 29, Mean Corpuscular Hemoglobin Concent 35, Red Cell Distribution Width 14.5, Platelet Count 265, Mean Platelet Volume 10.3, Neutrophils (%) (Auto) 79H, Lymphocytes (%) (Auto) 14 , Monocytes (%) (Auto) 7, Eosinophils (%) (Auto) 0, Basophils (%) (Auto) 0, Neutrophils # (Auto) 16.9H, Lymphocytes # (Auto) 3.1, Monocytes # (Auto) 1.5H, Eosinophils # (Auto) 0.0, Basophils # (Auto) 0.0 Assessment/Plan Assessment/Plan Assessment & Plan 33 yo G4 now P4 delivered term male via , PPD #1 Plan - Pain well controlled on PO meds - Hgb well controlled - Breast/Bottle feeding - Plan for home tomorrow Clinical Quality Measures DVT/VTE Risk/Contraindication: Risk Factor Score Per Nursin RFS Level Per Nursing on Admit: 1=Low/No VTE PPX GAULT,DANIELA R MD Aug 07, 2018 11:04 am
[2018-08-08] MEDS: IBUPROFEN 600 MG (MOTRIN) TAB PO SCH ×3 (00:47→12:02)
[2018-08-08] MEDS: CATHETER FLUSH 10 ML SYR IV SCH ×2 (00:47→06:45)
[2018-08-08 02:00] VITALS: BP 103/63
[2018-08-08 08:00] VITALS: BP 126/82
[2018-08-08] MEDS ORDERED: IBUP-844 PO (09:17)
--- NOTE | 2018-08-08 09:18 | Discharge Instructions ---
Discharge Inst-Women's Serv Depart Medications New, Converted or Re-Newed RX: Other (over the counter) New Medications: Ibuprofen (Ibu) 600 Mg Tablet 600 MG PO Q6H for Cramps, #90 TAB 0 Refills Follow Up/Instructions Goal/Follow Up: Follow-up with Dr. Hammer in 6 weeks. Activity Activity: Activity as Tolerated NO SMOKING: NO SMOKING Nothing Inside Vagina: No Douching, No [place], No Tampons Diet Discharge Diet: No Restrictions Symptoms to Report to : Bleeding Excessive, Pain Increased, Fever Over 101 Degrees F, Vaginal Bleeding Increase, Vaginal Discharge Foul, Shortness of Breath For Any Problems or Questions: Contact Your Physician ADAM NAVARRO DO Aug 08, 2018 09:15
--- NOTE | 2018-08-08 09:21 | Discharge Summary ---
Diagnosis/Chief Complaint Date of Admission Aug 06, 2018 at 08:57 Date of Discharge Admission Diagnosis Admission Diagnosis G4 at 40w2d - IOL for postdates Discharge Diagnosis 33 yo G4 now P4 delivered term male via , PPD #2 Plan - Pain well controlled on PO meds - Hgb well controlled - Breast/Bottle feeding - DC home Discharge Summary-OBS Procedures None. Discharge Physical Examination Allergies: Coded Allergies: No Known Drug Allergies (Unverified , 08/06/18) Vitals & I&Os Vital Sign - Last 12Hours Date Time Temp Pulse Resp B/P (MAP) Pulse Ox O2 Delivery O2 Flow Rate FiO2 08/08/18 08:00 98.6 109 18 126/82 (97) 98 Room Air 08/07/18 13:35 10.00 10.00 General Appearance: Alert, Oriented X3, Cooperative Psych/Mental Status: Mood NL Hospital Course Routine pp care Discharge Instructions to patient/family Please see electronic discharge instructions given to patient. Discharge Medications Reviewed and agree with Discharge Medication list on patient's Discharge Instruction sheet Clinical Quality Measures DVT/VTE Risk/Contraindication: Risk Factor Score Per Nursin RFS Level Per Nursing on Admit: 1=Low/No VTE PPX ADAM NAVARRO DO Aug 08, 2018 09:21
[2018-08-08 12:35] VITALS: BP 126/82
== END 2018-08-08 12:35 | disposition home or self-care (01) | DRG 775 ==
LOC: UNDOADMIN 08:57 → LDRP 08:57
PROVIDERS: ADMIT Family Medicine; ATTEND Family Medicine
PROC: 10E0XZZ Delivery of Products of Conception, External Approach (ICD-10-PCS; principal; 2018-08-06)
PROC: 3E033VJ Introduction of Other Hormone into Peripheral Vein, Percutaneous Approach (ICD-10-PCS; 2018-08-06)
DX: O48.0 Post-term pregnancy (principal); O28.3 Abnormal ultrasonic finding on antenatal screening of mother; Z3A.40 40 weeks gestation of pregnancy; Z37.0 Single live birth
CPT/HCPCS: 36415; 85025; 86850; 86900; 86901

== ENCOUNTER → 2018-08-06 | Outpatient (CLI) | payer OTHER ==
[~2018-08-06] MED LIST: IBUP-844 PO
--- NOTE | 2018-08-06 09:08 | Diagnostic Imaging Report ---
INDICATION: Term . Biophysical profile was performed. The fetus is cephalic. heart rate was recorded at 133 beats per minute. Placenta is fundal. Amniotic fluid index is 10.1 cm. Biophysical profile score is 6/8 with 2 point deduction given for lack of breathing movements visualized. IMPRESSION: Biophysical profile score 6/8. Dictated by: Dictated on workstation # [id number]
== END ==
LOC: RAD 07:21
PROVIDERS: ATTEND Family Medicine
DX: Z36.89 Encounter for other specified antenatal screening (principal); Z3A.40 40 weeks gestation of pregnancy
CPT/HCPCS: 76819